=== PATIENT | female | born 1960 | race American Indian/Alaskan Native ===

== ENCOUNTER 2021-06-03 13:11 | Emergency (ER) | payer MEDICARE, MEDICAID ==
[2021-06-03 13:39] VITALS: BP 152/87
--- NOTE | 2021-06-03 15:27 | Emergency Department Report ---
ED General Adult HPI - General Chief complaint: Weakness Stated complaint: SENT BY CHEYENNE WITT(Ayla)ANKLE/ SEVERE PAIN Time Seen by Provider: 06/03/21 15:12 Source: patient Mode of arrival: Wheelchair Limitations: No Limitations - History of Present Illness Initial comments: Chief complaint: "I just hurt all of my body after dialysis." HPI: This is a 60-year-old female with history of end-stage renal disease on hemodialysis Monday osteoporosis, rheumatoid arthritis hypertension, DC who presents with pain all over her body since dialysis on yesterday. She denies fever, headache, chest pain, cough. She states that she has pain in her arms back legs. No concentration in joints. She injured her right lower extremity a month ago. She now has a cyst in the area. She did receive COVID-19 vaccine. She has received hemodialysis therapy since August last year. -: Gradual, days(s) (1 days) Location: back, left, right, upper extremity, lower extremity Severity scale (0 -10): 10 Consistency: constant Associated Symptoms: other (cyst on right leg) - Related Data Previous Rx's Medication Instructions Recorded Last Taken Type oxyCODONE /ACETAMINOPHEN [Percocet 1 tab PO Q6HR PRN #15 tablet 06/03/21 Unknown Rx 5/325] Allergies Allergy/AdvReac Type Severity Reaction Status Date / Time No Known Allergies Allergy Unverified 06/03/21 15:20 ED Review of Systems ROS: Stated complaint: SENT BY CHEYENNE WITT(Ayla)ANKLE/ SEVERE PAIN Other details as noted in HPI Comment: All other systems reviewed and negative Constitutional: denies: fever, malaise Respiratory: denies: cough, shortness of breath Cardiovascular: denies: chest pain Gastrointestinal: denies: abdominal pain, nausea, vomiting Musculoskeletal: myalgia ED Past Medical Hx - Past Medical History Previous Medical History?: Yes Hx Hypertension: Yes Hx Heart Attack/AMI: Yes Hx Diabetes: Yes Hx Renal Disease: Yes (HD M-W-F) Additional medical history: osteoporosis, RA - Surgical History Past Surgical History?: Yes - Social History Smoking Status: Never Smoker Substance Use Type: None - Medications Home Medications: Home Medications Medication Instructions Recorded Confirmed Last Taken Type oxyCODONE /ACETAMINOPHEN [Percocet 1 tab PO Q6HR PRN #15 tablet 06/03/21 Unknown Rx 5/325] ED Physical Exam - General Limitations: No Limitations General appearance: alert, in no apparent distress - Head Head exam: Present: atraumatic, normocephalic - Eye Eye exam: Present: normal appearance - ENT ENT exam: Present: mucous membranes moist - Neck Neck exam: Present: normal inspection, full ROM - Respiratory Respiratory exam: Present: normal lung sounds bilaterally. Absent: respiratory distress, wheezes, rales, rhonchi - Cardiovascular Cardiovascular Exam: Present: regular rate, normal rhythm, normal heart sounds. Absent: systolic murmur, diastolic murmur, rubs, gallop - GI/Abdominal GI/Abdominal exam: Present: soft, normal bowel sounds. Absent: distended, tenderness, guarding, rebound - Extremities Exam Extremities exam: Present: normal inspection - Neurological Exam Neurological exam: Present: alert, oriented X3 - Psychiatric Psychiatric exam: Present: normal affect, normal mood - Skin Skin exam: Present: warm, dry, intact, normal color. Absent: rash ED Course Vital Signs 06/03/21 06/03/21 06/03/21 13:34 15:09 16:14 Temperature 99.2 F Pulse Rate 91 H 88 Respiratory 20 18 18 Rate Blood Pressure 152/87 O2 Sat by Pulse 98 99 97 Oximetry ED Medical Decision Making - Lab Data Result diagrams: 06/03/21 15:58 06/03/21 15:58 - EKG Data -: EKG Interpreted by Md EKG shows normal: sinus rhythm, axis, intervals, QRS complexes, ST-T waves Rate: normal - EKG Data 06/03/21 15:26 EKG obtained 1321 EKG interpreted by nm Normal sinus rhythm rate 90 bpm normal axis prolonged QTC no ST elevation nonspecific T wave abnormality - Radiology Data Radiology results: report reviewed [facility] [address] [place] [address] XRay Report Signed Patient: KALEIGH THAYER MR#: [id number] : 1960 Acct:[id number] Age/Sex: 60 / F ADM Date: 06/03/21 Loc: ED Attending Dr: Ordering Physician: Nati Purcell MD Date of Service: 06/03/21 Procedure(s): XR tibia fibula 2V RT Accession Number(s): [id number] cc: Nati Purcell MD Fluoro Time In Minutes: RIGHT TIBIA AND FIBULA 2 VIEWS INDICATION: cyst on right leg. COMPARISON: None. IMPRESSION: No osseous abnormality is appreciated. Venous stasis disease is s uspected. There is mild soft tissue swelling anteriorly at the level of the mid [place]. Diffuse vascu lar calcifications. Signer Name: Alfonzo Cobos Jr, MD Signed: 06/03/2021 3:56 PM Workstation Name: [id number] Transcribed By: TTR Dictated By: ALFONZO COBOS JR, MD Electronically Authenticated By: ALFONZO COBOS JR, MD Signed Date/Time: 06/03/211555 DD/ 54 TD/TT: - Medical Decision Making 1. Diffuse body pain: Unclear if this is a flare of rheumatoid arthritis which is not likely considering the lack of localized joint involvement. Dialysis treatment and end-stage renal disease both can can be associated with generalized myalgia. CBC chemistry magnesium phosphorus all with normal limits. Only mild hypocalcemia detected 8.0. I suspect her pain is a symptom of chronic kidney disease and treatment therapy. 2. Right lower leg cyst: No evidence of fracture or neurovascular compromise. No indication of abscess. Patient given referral to orthopedic surgeon. Critical care attestation.: If time is entered above; I have spent that time in minutes in the direct care of this critically ill patient, excluding procedure time. ED Disposition Clinical Impression: Complications of end stage renal disease, Cyst, dermoid, leg Disposition: DC-01 TO HOME OR SELFCARE Is pt being admited?: No Does the pt Need Aspirin: No Condition: Stable Prescriptions: oxyCODONE /ACETAMINOPHEN [Percocet 5/325] 1 tab PO Q6HR PRN #15 tablet PRN Reason: Pain Referrals: RIANNA ESCUDERO MD [Staff Physician] - 3-5 Days
--- NOTE | 2021-06-03 16:00 | XRay Report ---
RIGHT TIBIA AND FIBULA 2 VIEWS INDICATION: cyst on right leg. COMPARISON: None. IMPRESSION: No osseous abnormality is appreciated. Venous stasis disease is suspected. There is mil d soft tissue swelling anteriorly at the level of the mid [place]. Diffuse vascular calcifications. Signer Name: Alfonzo Cobos Jr, MD Signed: 06/03/2021 3:56 PM Workstation Name: [id number]
[2021-06-03 16:17] LABS: Hematocrit 34.1 % (30.3-42.9); Hemoglobin 10.9 gm/dl (10.1-14.3); Mean Corpuscular HGB Conc 32 % (30-34); Mean Corpuscular Volume 84 fl (79-97); Platelet Count 199 K/mm3 (140-440); Red Blood Count 4.06 M/mm3 (3.65-5.03); Red Cell Distribution Width 20.3 % (13.2-15.2)
[2021-06-03] MEDS ORDERED: oxyCODONE /ACETAMINOPHEN 5-325MG TAB PO ONE (16:18)
[2021-06-03 17:34] LABS: Total Cells Counted 100
[2021-06-03 17:35] LABS: Anisocytosis 1+; Platelet Estimate Consistent w Auto
--- NOTE | 2021-06-04 14:07 | Electrocardiograph Report ---
[facility] Test Date: 2021-06-03 Test Time: 13:21:54 Pat Name: KALEIGH THAYER Department: Room: Gender: F Stock Clerk: BRIANNA : 1960 Requested By: SADI ABBOTT Order Number: [id number] Reading MD: Isaak Zuñiga Measurements Intervals [place] Rate: 91 P: 27 NV: 116 QRS: -11 QRSD: 82 T: 76 QT: 395 QTc: 486 Interpretive Statements Sinus rhythm Probable LVH with secondary repol abnrm No previous ECG available for comparison Electronically Signed On 06-04-2021 14:07:00 EDT by Isaak Zuñiga
== END 2021-06-03 17:30 | disposition home or self-care (01) ==
LOC: ED 13:11
DX: D36.7 Benign neoplasm of other specified sites (principal); E11.22 Type 2 diabetes mellitus with diabetic chronic kidney disease; I13.11 Hypertensive heart and chronic kidney disease without heart failure, with stage 5 chronic kidney disease, or end stage renal disease; N18.6 End stage renal disease; Z99.2 Dependence on renal dialysis; Z98.890 Other specified postprocedural states; Z79.899 Other long term (current) drug therapy
CPT/HCPCS: 36415; 80048; 83735; 84100; 85007; 85025; 93005

== ENCOUNTER 2021-06-09 09:31 | Inpatient (IN) | payer MEDICARE ==
[2021-06-09] MEDS ORDERED: ASPIRIN 325 MG TAB PO ONE (09:36)
--- NOTE | 2021-06-09 10:24 | XRay Report ---
XR chest 1V ap INDICATION / CLINICAL INFORMATION: CP/ SOB. COMPARISON: None available. FINDINGS: SUPPORT DEVICES: Internal jugular central venous access catheter terminates in the SVC. HEART / MEDIASTINUM: Mildly prominent cardiac silhouette. LUNGS / PLEURA: Peribronchial and interlobular septal thickening. No pneumothorax. Suspect small effu sions. ADDITIONAL FINDINGS: Advanced arthropathy of the shoulders IMPRESSION: 1. Cardiomegaly with interstitial edema and suspect small effusions. Signer Name: Gus Reed MD Signed: 06/09/2021 10:20 AM Workstation Name: [id number]
--- NOTE | 2021-06-09 10:37 | Electrocardiograph Report ---
[facility] Test Date: 2021-06-09 Test Time: 09:43:46 Pat Name: KALEIGH THAYER Department: Room: Gender: F Head Pastry Chef: BRIANNA : 1960 Requested By: ED DOC Order Number: [id number] Reading MD: Willis Ndiaye Measurements Intervals [place] Rate: 88 P: 37 MO: 123 QRS: 19 QRSD: 80 T: 64 QT: 418 QTc: 507 Interpretive Statements Sinus rhythm Compared to ECG 06/03/2021 13:21:54 No significant changes Electronically Signed On 06-09-2021 10:37:25 EDT by Willis Ndiaye
[2021-06-09] MEDS ORDERED: ONDANSETRON 4 MG/2 ML INJ IV ONE (11:16)
[2021-06-09] MEDS ORDERED: MORPHINE 4 MG/1 ML INJ IV ONE (11:16)
[2021-06-09] MEDS ORDERED: MORPHINE 4 MG/1 ML INJ IM ONE (11:27)
--- NOTE | 2021-06-09 11:46 | Emergency Department Report ---
ED General Adult HPI - General Chief complaint: Dyspnea/Respdistress Stated complaint: SOB/CP Time Seen by Provider: 06/09/21 10:59 Source: patient Mode of arrival: Wheelchair Limitations: No Limitations - History of Present Illness Initial comments: The patient presents to the emergency department the chief complaint of diffuse chest pain that started this morning. Patient states that she has sharp sensation throughout her whole chest. Patient was was go to dialysis this morning but did not go due to the chest pain. Patient also complains of mild shortness of breath. Patient denies abdominal pain or headache. -: Sudden Location: chest Severity scale (0 -10): 10 Quality: sharp Consistency: constant Improves with: none Worsens with: none Associated Symptoms: denies other symptoms Treatments Prior to Arrival: none - Related Data Previous Rx's Medication Instructions Recorded Last Taken Type oxyCODONE /ACETAMINOPHEN [Percocet 1 tab PO Q6HR PRN #15 tablet 06/03/21 Unknown Rx 5/325] Allergies Allergy/AdvReac Type Severity Reaction Status Date / Time No Known Allergies Allergy Verified 06/09/21 09:33 ED Review of Systems ROS: Stated complaint: SOB/CP Other details as noted in HPI Comment: All other systems reviewed and negative Constitutional: denies: chills, fever Eyes: denies: eye pain, eye discharge, vision change ENT: denies: ear pain, throat pain Respiratory: shortness of breath. denies: cough, wheezing Cardiovascular: chest pain. denies: palpitations Endocrine: no symptoms reported Gastrointestinal: denies: abdominal pain, nausea, diarrhea Genitourinary: denies: urgency, dysuria, discharge Musculoskeletal: denies: back pain, joint swelling, arthralgia Skin: denies: rash, lesions Neurological: denies: headache, weakness, paresthesias Psychiatric: denies: anxiety, depression Hematological/Lymphatic: denies: easy bleeding, easy bruising ED Past Medical Hx - Past Medical History Hx Hypertension: Yes Hx Heart Attack/AMI: Yes Hx Diabetes: Yes Hx Renal Disease: Yes (HD M-W-F) Additional medical history: osteoporosis, RA - Social History Smoking Status: Never Smoker Substance Use Type: None - Medications Home Medications: Home Medications Medication Instructions Recorded Confirmed Last Taken Type oxyCODONE /ACETAMINOPHEN [Percocet 1 tab PO Q6HR PRN #15 tablet 07/22/21 Unknown Rx 5/325] ED Physical Exam - General Limitations: No Limitations General appearance: alert, in no apparent distress - Head Head exam: Present: atraumatic, normocephalic - Eye Eye exam: Present: normal appearance - ENT ENT exam: Present: mucous membranes moist - Neck Neck exam: Present: normal inspection - Respiratory Respiratory exam: Present: normal lung sounds bilaterally. Absent: respiratory distress - Cardiovascular Cardiovascular Exam: Present: regular rate, normal rhythm. Absent: systolic murmur, diastolic murmur, rubs, gallop - GI/Abdominal GI/Abdominal exam: Present: soft, normal bowel sounds. Absent: distended, tenderness - Extremities Exam Extremities exam: Present: other ([place] deformities of the digits of the hand) - Back Exam Back exam: Present: normal inspection - Neurological Exam Neurological exam: Present: alert, oriented X3, CN II-XII intact. Absent: motor sensory deficit - Psychiatric Psychiatric exam: Present: normal affect, normal mood - Skin Skin exam: Present: warm, dry, intact, normal color. Absent: rash ED Course Vital Signs 06/09/21 06/09/21 06/09/21 09:35 11:14 12:00 Temperature 99.5 F Pulse Rate 88 77 105 H Respiratory 20 26 H 21 Rate Blood Pressure 175/91 182/91 O2 Sat by Pulse 98 98 Oximetry 06/09/21 06/09/21 06/09/21 13:34 14:00 15:00 Temperature Pulse Rate 107 H 104 H 100 H Respiratory 21 22 23 Rate Blood Pressure 184/91 171/84 149/78 O2 Sat by Pulse 95 96 96 Oximetry 06/09/21 16:00 Temperature Pulse Rate 103 H Respiratory 24 Rate Blood Pressure 169/82 O2 Sat by Pulse 96 Oximetry - Central Line Placement Right Femoral Consent Obtained: verbal consent Time Out Performed: Yes Patient Placed on Monitor/Pulse Ox: Yes MD Prep: mask, gown, gloves Central Line Prep: Chlorhexidine scrub Local Anesthesia Used: Lidocaine 1% Amount of Anesthesia Used (mls): 10 Ultrasound Used for Placement: Yes Central Line Lumen Inserted: triple Reason for Insertion: Emergency Venous Access Bloods Obtained for Lab: Yes Central Line Position: good blood return, all ports aspirated, flus, sutured in place with 3-0 Dressing Applied: Tegaderm Patient Tolerated Procedure: well Complications: none ED Medical Decision Making - Lab Data Result diagrams: 06/09/21 14:11 06/09/21 14:11 Lab Results 06/09/21 06/09/21 Range/Units 14:11 14:11 WBC 7.5 (4.5-11.0) K/mm3 RBC 3.62 L (3.65-5.03) M/mm3 Hgb 9.8 L (10.1-14.3) gm/dl Hct 29.8 L (30.3-42.9) % MCV 82 (79-97) fl MCH 27 L (28-32) pg MCHC 33 (30-34) % RDW 20.0 H (13.2-15.2) % Plt Count 187 (140-440) K/mm3 Add Manual Diff Complete Total Counted 100 Seg Neutrophils % Complaint Inspector Seg Neuts % (Manual) 98.0 H (40.0-70.0) % Lymphocytes % (Manual) 1.0 L (13.4-35.0) % Monocytes % (Manual) 1.0 (0.0-7.3) % Nucleated RBC % Not Reportable Seg Neutrophils # Man 7.4 (1.8-7.7) K/mm3 Band Neutrophils # 0.0 K/mm3 Lymphocytes # (Manual) 0.1 L (1.2-5.4) K/mm3 Abs React Lymphs (Man) 0.0 K/mm3 Monocytes # (Manual) 0.1 (0.0-0.8) K/mm3 Eosinophils # (Manual) 0.0 (0.0-0.4) K/mm3 Basophils # (Manual) 0.0 (0.0-0.1) K/mm3 Metamyelocytes # 0.0 K/mm3 Myelocytes # 0.0 K/mm3 Promyelocytes # 0.0 K/mm3 Blast Cells # 0.0 K/mm3 WBC Morphology Not Reportable Hypersegmented Neuts Not Reportable Hyposegmented Neuts Not Reportable Hypogranular Neuts Not Reportable Smudge Cells Not Reportable Toxic Granulation Not Reportable Toxic Vacuolation Not Reportable Dohle Bodies Not Reportable Pelger-Huet Anomaly Not Reportable Belinda Rods Not Reportable Platelet Estimate Consistent w auto Clumped Platelets Not Reportable Plt Clumps, EDTA Not Reportable Large Platelets Not Reportable Giant Platelets Not Reportable Platelet Satelliting Not Reportable Plt Morphology Comment Not Reportable RBC Morphology Not Reportable Dimorphic RBCs Not Reportable Polychromasia Not Reportable Hypochromasia Not Reportable Poikilocytosis Not Reportable Anisocytosis 1+ Microcytosis Not Reportable Macrocytosis Not Reportable Spherocytes Not Reportable Pappenheimer Bodies Not Reportable Sickle Cells Not Reportable Target Cells Not Reportable Tear Drop Cells Not Reportable Ovalocytes Not Reportable Helmet Cells Not Reportable Benítez-Okay Bodies Not Reportable [place] Rings Not Reportable Mallorie Cells Not Reportable Bite Cells Not Reportable Crenated Cell Not Reportable Elliptocytes Not Reportable Acanthocytes (Spur) Not Reportable Rouleaux Not Reportable Hemoglobin C Crystals Not Reportable Schistocytes Not Reportable Malaria parasites Not Reportable Clemente Bodies Not Reportable Hem Pathologist Commnt No Sodium 142 (137-145) mmol/L Potassium 3.6 (3.6-5.0) mmol/L Chloride 101.6 (98-107) mmol/L Carbon Dioxide 27 (22-30) mmol/L Anion Gap 17 mmol/L BUN 54 H (7-17) mg/dL Creatinine 3.6 H (0.6-1.2) mg/dL Estimated GFR 16 ml/min BUN/Creatinine Ratio 15 % Glucose 65 (65-100) mg/dL Calcium 8.5 (8.4-10.2) mg/dL Total Bilirubin 0.30 (0.1-1.2) mg/dL AST 13 (5-40) units/L ALT < 5 L (7-56) units/L Alkaline Phosphatase 27 L (35-129) units/L Troponin T 0.022 (0.00-0.029) ng/mL Total Protein 5.5 L (6.3-8.2) g/dL Albumin 3.2 L (3.9-5) g/dL Albumin/Globulin Ratio 1.4 % - EKG Data -: EKG Interpreted by Me EKG shows normal: sinus rhythm Rate: normal - Radiology Data Radiology results: report reviewed - Medical Decision Making Central line placed for venous access due to failed attempts of getting ultrasound-guided IV access as well as 's Critical care attestation.: If time is entered above; I have spent that time in minutes in the direct care of this critically ill patient, excluding procedure time. ED Disposition Clinical Impression: Chest pain Disposition: OP ADMIT IP TO THIS HOSP Is pt being admited?: Yes Does the pt Need Aspirin: Yes Condition: Stable Referrals: PRIMARY CARE,MD [Primary Care Provider] - 3-5 Days Heart Score - HEART Score History: Slightly suspicious EKG: Non-specific Age: 45-65 Risk factors: > 3 risk factors or hx of atherosclerotic disease Troponin: < normal limit HEART Score: 4 - EKG Read Time Time EKG Completed: 00:00 EKG Read Time: 00:00 - Critical Actions Critical Actions: 4-6 pts:12-16.6% risk of adverse cardiac event. Should be admitted
[2021-06-09] MEDS ORDERED: HYDROmorphone 1 MG/1 ML INJ IM ONE (12:11)
[2021-06-09] MEDS ORDERED: LIDOCAINE (1%) 10 MG/1 ML VIAL 20 ML MDV INFILTRATI ONE (13:56)
--- NOTE | 2021-06-09 14:34 | Nuclear Medicine Report ---
NUCLEAR MEDICINE PERFUSION SCAN INDICATION: sob/cp CORRELATION: AP chest performed earlier today RADIOPHARMACEUTICAL: Perfusion: 5.2 mCi Tc-99m MAA given IV FINDINGS: Perfusion images show symmetric and uniform radiotracer distribution throughout bilateral lung zones with no evidence of unmatched segmental perfusion defects. Mild enlargement of the cardiac silhouette is noted. IMPRESSION: Low probability perfusion scan for pulmonary embolism. Signer Name: Alfonzo Cobos Jr, MD Signed: 06/09/2021 2:30 PM Workstation Name: [id number]
[2021-06-09 14:53] LABS: Hematocrit 29.8 % (30.3-42.9); Hemoglobin 9.8 gm/dl (10.1-14.3); Mean Corpuscular HGB Conc 33 % (30-34); Mean Corpuscular Volume 82 fl (79-97); Platelet Count 187 K/mm3 (140-440); Red Blood Count 3.62 M/mm3 (3.65-5.03)
[2021-06-09 14:55] LABS: Albumin 3.2 g/dL (3.9-5); BUN/Creatinine Ratio 15; Blood Urea Nitrogen 54 mg/dL (7-17); Calcium 8.5 mg/dL (8.4-10.2); Hemolysis Index 7
[2021-06-09 14:58] LABS: Alanine Aminotransferase < 5 units/L (7-56)
[2021-06-09 16:22] LABS: Total Cells Counted 100
[2021-06-09] MEDS ORDERED: ASPIRIN 81 MG TAB CHEW PO ONE (16:22)
[2021-06-09 16:23] LABS: Anisocytosis 1+; Platelet Estimate Consistent w Auto
[2021-06-09] MEDS ORDERED: HYDROmorphone 1 MG/1 ML INJ IV ONE (18:31)
--- NOTE | 2021-06-09 22:02 | History and Physical Report ---
History of Present Illness Date of examination: 06/09/21 Date of admission: 06/09/21 16:22 Chief complaint: Chest pain for 2 days History of present illness: 60-year-old -Algerian male with history of hypertension diabetes coronary artery disease and end-stage renal disease presents with retrosternal chest pain since morning. Chest pain is about 6 7 out12t. No radiation. No diaphoresis. No shortness of breath. Patient was supposed to go for dialysis this morning but did not go due to her chest pain. No radiation of the chest pain. No exacerbating or relieving factors. Never had a stress test or cardiac cath. Patient is a poor historian. No exacerbating or relieving factors. No home medications for reconciliation - Past Medical History --Hypertension: Yes --Heart Attack/AMI: Yes --Diabetes: Yes --Renal Disease: Yes (HD -W-) --Additional medical history: osteoporosis, RA Surgical history AV fistula - Social History Smoking Status: Never Smoker Substance Use Type: None -Family history Htn - Medications Home Medications: Home Medications Medication Instructions Recorded Confirmed Last Taken Type oxyCODONE /ACETAMINOPHEN [Percocet 1 tab PO Q6HR PRN #15 tablet 06/03/21 Unknown Rx 5/325] Review of Systems ROS: Stated complaint: SOB/CP Other details as noted in HPI Comment: All other systems reviewed and negative Constitutional: denies: chills, fever Eyes: denies: eye pain, eye discharge, vision change ENT: denies: ear pain, throat pain Respiratory: shortness of breath. denies: cough, wheezing Cardiovascular: chest pain. denies: palpitations Endocrine: no symptoms reported Gastrointestinal: denies: abdominal pain, nausea, diarrhea Genitourinary: denies: urgency, dysuria, discharge Musculoskeletal: denies: back pain, joint swelling, arthralgia Skin: denies: rash, lesions Neurological: denies: headache, weakness, paresthesias Psychiatric: denies: anxiety, depression Hematological/Lymphatic: denies: easy bleeding, easy bruising Medications and Allergies Allergies Allergy/AdvReac Type Severity Reaction Status Date / Time No Known Allergies Allergy Verified 06/09/21 09:33 Home Medications Medication Instructions Recorded Confirmed Last Taken Type oxyCODONE /ACETAMINOPHEN [Percocet 1 tab PO Q6HR PRN #15 tablet 06/03/21 Unknown Rx 5/325] Exam - Constitutional Vitals: Temp Pulse Resp BP Pulse Ox 99.5 F 99 H 12 154/88 96 06/09/21 09:35 06/09/21 20:00 06/09/21 20:00 06/09/21 20:00 06/09/21 20:00 General appearance: Present: no acute distress, well-nourished - EENT Eyes: Present: PERRL ENT: hearing intact, clear oral mucosa - Neck Neck: Present: supple, normal ROM - Respiratory Respiratory effort: normal Respiratory: bilateral: CTA - Cardiovascular Heart rate: 78 Rhythm: regular Heart Sounds: Present: S1 & S2. Absent: rub, click - Extremities Extremities: no ischemia, pulses intact, pulses symmetrical, No edema Peripheral Pulses: within normal limits - Abdominal General gastrointestinal: Present: soft, non-tender, non-distended, normal bowel sounds Female genitourinary: Present: normal - Integumentary Integumentary: Present: clear, warm, dry - Musculoskeletal Musculoskeletal: gait normal, strength equal bilaterally - Psychiatric Psychiatric: appropriate mood/affect, intact judgment & insight - Neurologic Neurologic: CNII-XII intact, moves all extremities - Allied Health Allied health notes reviewed: nursing, case management HEART Score - HEART Score EKG: Non-specific Age: 45-65 Risk factors: > 3 risk factors or hx of atherosclerotic disease Troponin: Troponin T 0.016 ng/mL (0.00-0.029) 06/09/21 19:59 Troponin: < normal limit - Critical Actions Critical Actions: 4-6 pts:12-16.6% risk of adverse cardiac event. Should be admitted Results - Labs CBC & Chem 7: 06/09/21 14:11 06/09/21 14:11 Labs: Laboratory Last Values WBC 7.5 K/mm3 (4.5-11.0) 06/09/21 14:11 RBC 3.62 M/mm3 (3.65-5.03) L 06/09/21 14:11 Hgb 9.8 gm/dl (10.1-14.3) L 06/09/21 14:11 Hct 29.8 % (30.3-42.9) L 06/09/21 14:11 MCV 82 fl (79-97) 06/09/21 14:11 MCH 27 pg (28-32) L 06/09/21 14:11 MCHC 33 % (30-34) 06/09/21 14:11 RDW 20.0 % (13.2-15.2) H 06/09/21 14:11 Plt Count 187 K/mm3 (140-440) 06/09/21 14:11 Add Manual Diff Complete 06/09/21 14:11 Total Counted 100 06/09/21 14:11 Seg Neutrophils % [place] 06/09/21 14:11 Seg Neuts % (Manual) 98.0 % (40.0-70.0) H 06/09/21 14:11 Lymphocytes % (Manual) 1.0 % (13.4-35.0) L 06/09/21 14:11 Monocytes % (Manual) 1.0 % (0.0-7.3) 06/09/21 14:11 Nucleated RBC % Not Reportable 06/09/21 14:11 Seg Neutrophils # Man 7.4 K/mm3 (1.8-7.7) 06/09/21 14:11 Band Neutrophils # 0.0 K/mm3 06/09/21 14:11 Lymphocytes # (Manual) 0.1 K/mm3 (1.2-5.4) L 06/09/21 14:11 Abs React Lymphs (Man) 0.0 K/mm3 06/09/21 14:11 Monocytes # (Manual) 0.1 K/mm3 (0.0-0.8) 06/09/21 14:11 Eosinophils # (Manual) 0.0 K/mm3 (0.0-0.4) 06/09/21 14:11 Basophils # (Manual) 0.0 K/mm3 (0.0-0.1) 06/09/21 14:11 Metamyelocytes # 0.0 K/mm3 06/09/21 14:11 Myelocytes # 0.0 K/mm3 06/09/21 14:11 Promyelocytes # 0.0 K/mm3 06/09/21 14:11 Blast Cells # 0.0 K/mm3 06/09/21 14:11 WBC Morphology Not Reportable 06/09/21 14:11 Hypersegmented Neuts Not Reportable 06/09/21 14:11 Hyposegmented Neuts Not Reportable 06/09/21 14:11 Hypogranular Neuts Not Reportable 06/09/21 14:11 Smudge Cells Not Reportable 06/09/21 14:11 Toxic Granulation Not Reportable 06/09/21 14:11 Toxic Vacuolation Not Reportable 06/09/21 14:11 Dohle Bodies Not Reportable 06/09/21 14:11 Pelger-Huet Anomaly Not Reportable 06/09/21 14:11 Belinda Rods Not Reportable 06/09/21 14:11 Platelet Estimate Consistent w auto 06/09/21 14:11 Clumped Platelets Not Reportable 06/09/21 14:11 Plt Clumps, EDTA Not Reportable 06/09/21 14:11 Large Platelets Not Reportable 06/09/21 14:11 Giant Platelets Not Reportable 06/09/21 14:11 Platelet Satelliting Not Reportable 06/09/21 14:11 Plt Morphology Comment Not Reportable 06/09/21 14:11 RBC Morphology Not Reportable 06/09/21 14:11 Dimorphic RBCs Not Reportable 06/09/21 14:11 Polychromasia Not Reportable 06/09/21 14:11 Hypochromasia Not Reportable 06/09/21 14:11 Poikilocytosis Not Reportable 06/09/21 14:11 Anisocytosis 1+ 06/09/21 14:11 Microcytosis Not Reportable 06/09/21 14:11 Macrocytosis Not Reportable 06/09/21 14:11 Spherocytes Not Reportable 06/09/21 14:11 Pappenheimer Bodies Not Reportable 06/09/21 14:11 Sickle Cells Not Reportable 06/09/21 14:11 Target Cells Not Reportable 06/09/21 14:11 Tear Drop Cells Not Reportable 06/09/21 14:11 Ovalocytes Not Reportable 06/09/21 14:11 Helmet Cells Not Reportable 06/09/21 14:11 [place] Bodies Not Reportable 06/09/21 14:11 [place] Rings Not Reportable 06/09/21 14:11 [place] Cells Not Reportable 06/09/21 14:11 Bite Cells Not Reportable 06/09/21 14:11 Crenated Cell Not Reportable 06/09/21 14:11 Elliptocytes Not Reportable 06/09/21 14:11 Acanthocytes (Spur) Not Reportable 06/09/21 14:11 Rouleaux Not Reportable 06/09/21 14:11 Hemoglobin C Crystals Not Reportable 06/09/21 14:11 Schistocytes Not Reportable 06/09/21 14:11 Malaria parasites Not Reportable 06/09/21 14:11 Clement[place] Bodies Not Reportable 06/09/21 14:11 Hem Pathologist Commnt No 06/09/21 14:11 Sodium 142 mmol/L (137-145) 06/09/21 14:11 Potassium 3.6 mmol/L (3.6-5.0) 06/09/21 14:11 Chloride 101.6 mmol/L (98-107) 06/09/21 14:11 Carbon Dioxide 27 mmol/L (22-30) 06/09/21 14:11 Anion Gap 17 mmol/L 06/09/21 14:11 BUN 54 mg/dL (7-17) H 06/09/21 14:11 Creatinine 3.6 mg/dL (0.6-1.2) H 06/09/21 14:11 Estimated GFR 16 ml/min 06/09/21 14:11 BUN/Creatinine Ratio 15 % 06/09/21 14:11 Glucose 65 mg/dL (65-100) 06/09/21 14:11 Calcium 8.5 mg/dL (8.4-10.2) 06/09/21 14:11 Total Bilirubin 0.30 mg/dL (0.1-1.2) 06/09/21 14:11 AST 13 units/L (5-40) 06/09/21 14:11 ALT < 5 units/L (7-56) L 06/09/21 14:11 Alkaline Phosphatase 27 units/L (35-129) L 06/09/21 14:11 Troponin T 0.016 ng/mL (0.00-0.029) 06/09/21 19:59 Total Protein 5.5 g/dL (6.3-8.2) L 06/09/21 14:11 Albumin 3.2 g/dL (3.9-5) L 06/09/21 14:11 Albumin/Globulin Ratio 1.4 % 06/09/21 14:11 Short CBC 06/09/21 Range/Units 14:11 WBC 7.5 (4.5-11.0) K/mm3 Hgb 9.8 L (10.1-14.3) gm/dl Hct 29.8 L (30.3-42.9) % Plt Count 187 (140-440) K/mm3 BMP 06/09/21 14:11 Sodium 142 Potassium 3.6 Chloride 101.6 Carbon Dioxide 27 BUN 54 H Creatinine 3.6 H Glucose 65 Calcium 8.5 Cardiac Enzymes 06/09/21 06/09/21 06/09/21 Range/Units 14:11 19:59 23:58 Total Creatine Kinase 16 L (30-135) units/L CK-MB (CK-2) < 1.0 (0.0-4.0) ng/mL Troponin T 0.022 0.016 0.023 (0.00-0.029) ng/mL Liver Function 06/09/21 Range/Units 14:11 Total Bilirubin 0.30 (0.1-1.2) mg/dL AST 13 (5-40) units/L ALT < 5 L (7-56) units/L Alkaline Phosphatase 27 L (35-129) units/L Albumin 3.2 L (3.9-5) g/dL - Imaging and Cardiology EKG: report reviewed (Sinus rhythm no acute ST-T wave changes) Chest x-ray: report reviewed Imaging and Cardiology: Pulmonary perfusion imaging Low probability perfusion scan for pulmonary embolism Chest x-ray Cardiomegaly with interstitial edema and suspect small effusions sinus rhythm no acute ST-T wave changes Assessment and Plan Advance Directives: Yes (Full code) Plan of care discussed with patient/family: Yes - Patient Problems (1) Acute coronary syndrome Current Visit: Yes Status: Acute Plan to address problem: Serial troponins, CPK with MB. Lexiscan in the morning (2) Hypertension Current Visit: Yes Status: Chronic Qualifiers: Hypertension type: primary hypertension Qualified Code(s): I10 - Essential (primary) hypertension Plan to address problem: Patient initiated on valsartan 160 mg once a day (3) End-stage renal disease needing dialysis Current Visit: Yes Status: Chronic Plan to address problem: Patient is on Monday schedule Nephrology consulted--- Dr. Brenton Laguna (4) Anemia Current Visit: Yes Status: Chronic Qualifiers: Anemia type: due to chronic kidney disease Plan to address problem: Anemia secondary to chronic kidney disease On Epogen (5) Malnutrition Current Visit: Yes Status: Acute Qualifiers: Protein-calorie malnutrition severity: mild Plan to address problem: Albumin of 3.2 Initiated on dietary supplements (6) DVT prophylaxis Current Visit: Yes Status: Acute Plan to address problem: On heparin and GI prophylaxis
[2021-06-09] MEDS ORDERED: ONDANSETRON 4 MG/2 ML INJ IV PRN (22:06)
[2021-06-09] MEDS ORDERED: METOCLOPRAMIDE 10 MG/2 ML INJ IV PRN (22:06)
[2021-06-09] MEDS ORDERED: SODIUM CHLORIDE 0.45% 1000 ML 1,000 ML IV SCH (23:00)
[2021-06-09] MEDS: hydrALAZINE 20 MG/1 ML INJ IV PRN (23:10)
[2021-06-09] MEDS: HYDROmorphone 1 MG/1 ML INJ IV PRN (23:11)
[2021-06-09] MEDS: ACETAMINOPHEN 325 MG TAB PO PRN (23:15)
[2021-06-09] MEDS ORDERED: cefTRIAXone/NS 1 GM/50 ML 1 GM/50 ML BAG IV ONE (23:15)
[2021-06-09] MEDS: HEPARIN 5,000 UNIT/1 ML VIAL SUB-Q SCH (23:18)
[2021-06-09] MEDS: FAMOTIDINE 20 MG/2 ML INJ IV SCH (23:24)
[2021-06-10 01:11] LABS: Creatine Kinase MB < 1.0 ng/mL (0.0-4.0)
[2021-06-10] MEDS ORDERED: LORazepam 2 MG/ML VIAL IV ONE (01:51)
[2021-06-10] MEDS: HYDROmorphone 1 MG/1 ML INJ IV PRN (04:29)
[2021-06-10 06:39] LABS: Basophils % (Auto) 0.2 % (0.0-1.8); Eosinophils # (Auto) 0.1 K/mm3 (0.0-0.4); Eosinophils % (Auto) 2.7 % (0.0-4.3); Hemoglobin 9.1 gm/dl (10.1-14.3); Lymphocytes # (Auto) 0.5 K/mm3 (1.2-5.4); Lymphocytes % (Auto) 8.8 % (13.4-35.0); Mean Corpuscular HGB Conc 32 % (30-34); Mean Corpuscular Volume 83 fl (79-97); Monocytes # (Auto) 0.3 K/mm3 (0.0-0.8); Monocytes % (Auto) 5.2 % (0.0-7.3); Platelet Count 211 K/mm3 (140-440); Red Blood Count 3.48 M/mm3 (3.65-5.03)
[2021-06-10 06:40] LABS: Red Cell Distribution Width 20.3 % (13.2-15.2)
[2021-06-10 06:56] LABS: Albumin 3.1 g/dL (3.9-5); Calcium 7.5 mg/dL (8.4-10.2)
[2021-06-10 07:20] LABS: Creatine Kinase MB < 1.0 ng/mL (0.0-4.0)
[2021-06-10] MEDS: INSULIN LISPRO 100 UNIT/ML SUB-Q SCH ×4 (09:12→22:03)
[2021-06-10] MEDS: ACETAMINOPHEN 325 MG TAB PO PRN (09:27)
[2021-06-10] MEDS: FAMOTIDINE 20 MG/2 ML INJ IV SCH (09:27)
[2021-06-10] MEDS: HEPARIN 5,000 UNIT/1 ML VIAL SUB-Q SCH ×2 (09:28→22:02)
[2021-06-10] MEDS: VALSARTAN 160MG TAB PO SCH (09:28)
--- NOTE | 2021-06-10 09:29 | Consultation ---
History of Present Illness - Reason for Consult Consult date: 06/10/21 end stage renal disease - History of Present Illness patient with ESRD on HD, missed his treatment yesterday due to worsening chest pain and presented to the ER. CXR showed pulm congestion, VQ scan -ve for PE. he was evaluated by cardiology and is scheduled for stress tomorrow. Renal consult was requested for HD management while inpatient Past History Past Medical History: ESRD, hypertension Medications and Allergies Allergies Allergy/AdvReac Type Severity Reaction Status Date / Time No Known Allergies Allergy Verified 06/09/21 09:33 Home Medications Medication Instructions Recorded Confirmed Last Taken Type oxyCODONE /ACETAMINOPHEN [Percocet 1 tab PO Q6HR PRN #15 tablet 06/03/21 Unkno wn Rx 5/325] Active Meds: Active Medications Acetaminophen (Acetaminophen 325 Mg Tab) 650 mg PO Q4H PRN PRN Reason: Pain MILD(1-3)/Fever >100.5/[place] Last Admin: 06/09/21 23:15 Dose: 650 mg Documented by: Famotidine (Famotidine 20 Mg/2 Ml Inj) [facility] [place] [place] Admin: 06/09/21 23:24 Dose: 20 mg Documented by: Heparin Sodium (Porcine) (Heparin 5,000 Unit/1 Ml Vial) 5,000 unit SUB-Q Q12HR [facility] Last Admin: 06/09/21 23:18 Dose: 5,000 unit Documented by: Hydralazine HCl (Hydralazine 20 Mg/1 Ml Inj) 10 mg IV Q6H PRN PRN Reason: SBP > 160 Last Admin: 06/09/21 23:10 Dose: 10 mg Documented by: Hydromorphone HCl (Hydromorphone 1 Mg/1 Ml Inj) 0.5 mg IV Q3H PRN PRN Reason: Pain , Severe (7-10) Last Admin: 06/10/21 04:29 Dose: 0.5 mg Documented by: Insulin Human Lispro (Insulin Lispro 100 Unit/Ml) 0 unit SUB-Q [facility]; Protocol Last Admin: 06/10/21 09:12 Dose: Not Given Documented by: Metoclopramide HCl (Metoclopramide 10 Mg/2 Ml Inj) 5 mg IV Q6H PRN PRN Reason: Nausea And Vomiting Ondansetron HCl (Ondansetron 4 Mg/2 Ml Inj) 4 mg IV Q8H PRN PRN Reason: Nausea And Vomiting Oxycodone/Acetaminophen (Oxycodone /Acetaminophen 5-325mg Tab) 1 tab PO Q6H PRN PRN Reason: Pain, Moderate (4-6) Sodium Chloride (Sodium Chloride 0.9% 10 Ml Flush Syringe) 10 ml IV BID MADIE Sodium Chloride (Sodium Chloride 0.9% 10 Ml Flush Syringe) 10 ml IV PRN PRN PRN Reason: LINE FLUSH Valsartan (Valsartan 160mg Tab) 160 mg PO DAILY MADIE Review of Systems All systems: negative (chest pain) Exam - Vital Signs Vital signs: Vital Signs Temp Pulse Resp BP Pulse Ox 99.5 F 88 20 175/91 98 06/09/21 09:35 06/09/21 09:35 06/09/21 09:35 06/09/21 09:35 06/09/21 09:35 - General Appearance General appearance: well-developed, well-nourished EENT: ATNC, PERRL, mucous membranes moist Neck: Present: neck supple Respiratory: Clear to Ascultation Heart: regular, S1S2 Gastrointestinal: Present: normoactive bowel sounds. Absent: absent bowel sounds, tenderness, masses Integumentary: no rash, warm and dry Neurologic: no focal deficit, no asterixis Musculoskeletal: Present: other (no edema in BLE) Psychiatric: mood/affect appropriate, cooperative Results - Lab Results 06/10/21 05:41 06/10/21 05:41 Most recent lab results Calcium 7.5 mg/dL (8.4-10.2) L 06/10/21 05:41 Assessment and Plan (1) Acute coronary syndrome (2) Hypertension (3) End-stage renal disease needing dialysis (4) Anemia (5) Malnutrition HD today for clearance and volume remova will assess dialysis needs daily, likely another tx tomorrow Renally dose meds strict I&O daily weight
[2021-06-10 11:19] LABS: Creatine Kinase MB < 1.0 ng/mL (0.0-4.0)
[2021-06-10] MEDS: oxyCODONE /ACETAMINOPHEN 5-325MG TAB PO PRN ×2 (14:51→22:04)
--- NOTE | 2021-06-10 15:41 | Progress Note ---
Assessment and Plan Assessment and plan: (1) Acute coronary syndrome Current Visit: Yes Status: Acute Plan to address problem: Serial troponins- Negative. CKMB likely slightly elevated due to ESRD Lexiscan in the morning, was canceled today due to NM lung scan completed on admission (2) Hypertension Current Visit: Yes Status: Chronic Qualifiers: Hypertension type: primary hypertension Qualified Code(s): I10 - Essential (primary) hypertension Plan to address problem: Patient initiated on valsartan 160 mg once a day (3) End-stage renal disease needing dialysis Current Visit: Yes Status: Chronic Plan to address problem: Patient is on Monday schedule HD today for clearance and volume removal will assess dialysis needs daily, likely another tx tomorrow per nephro note Renally dose meds strict I&O daily weight Nephrology consulted --- Dr. Brenton Laguna (4) Anemia Current Visit: Yes Status: Chronic Qualifiers: Anemia type: due to chronic kidney disease Plan to address problem: Anemia secondary to chronic kidney disease On Epogen (5) Malnutrition Current Visit: Yes Status: Acute Qualifiers: Protein-calorie malnutrition severity: mild Plan to address problem: Albumin of 3.2 Initiated on dietary supplements (6) DVT prophylaxis Current Visit: Yes Status: Acute Plan to address problem: On heparin and GI prophylaxis History Interval history: Patient states that she is depressed about having to undergo dialysis. She denied any active chest pain or pain in general. Her was present at bedside during afternoon encounter. He states that she has had trouble adjusting to dialysis and that patient is tired of taking multiple medications. She has had trouble coping with the dialysis treatment sessions. Both the patient and her kept insisting that the patient needed a kidney transplant however I discussed with them that kidney transplantation as a strict criteria in our facility is not transplant capable. I recommended they continue to address any concerns they have in regards to this with their outpatient stitching machine operator. Patient will undergo hemodialysis treatment today this afternoon. Hospitalist Physical - Physical exam Narrative exam: General appearance: well-developed, well-nourished EENT: ATNC, PERRL, mucous membranes moist Neck: Present: neck supple Respiratory: Clear to Ascultation Heart: regular, S1S2 Gastrointestinal: Present: normoactive bowel sounds. Absent: absent bowel sounds, tenderness, masses Integumentary: no rash, warm and dry Neurologic: no focal deficit, no asterixis Musculoskeletal: Present: other (no edema in BLE) Psychiatric: mood/affect appropriate, cooperative - Constitutional Vitals: Temp Pulse Resp BP Pulse Ox 98.0 F 108 H 18 156/86 96 06/10/21 12:14 06/10/21 12:14 06/10/21 12:14 06/10/21 12:14 06/10/21 13:00 General appearance: Present: no acute distress, well-nourished HEART Score - HEART Score EKG: Non-specific Age: 45-65 Risk factors: > 3 risk factors or hx of atherosclerotic disease Troponin: Troponin T 0.025 ng/mL (0.00-0.029) 06/10/21 05:41 Troponin: < normal limit - Critical Actions Critical Actions: 4-6 pts:12-16.6% risk of adverse cardiac event. Should be admitted Results - Labs CBC & Chem 7: 06/10/21 05:41 06/10/21 05:41 Labs: Laboratory Last Values WBC 5.3 K/mm3 (4.5-11.0) 06/10/21 05:41 RBC 3.48 M/mm3 (3.65-5.03) L 06/10/21 05:41 Hgb 9.1 gm/dl (10.1-14.3) L 06/10/21 05:41 Hct 29.0 % (30.3-42.9) L 06/10/21 05:41 MCV 83 fl (79-97) 06/10/21 05:41 MCH 26 pg (28-32) L 06/10/21 05:41 MCHC 32 % (30-34) 06/10/21 05:41 RDW 20.3 % (13.2-15.2) H 06/10/21 05:41 Plt Count 211 K/mm3 (140-440) 06/10/21 05:41 Lymph % (Auto) 8.8 % (13.4-35.0) L 06/10/21 05:41 [place] % (Auto) 5.2 % (0.0-7.3) 06/10/21 05:41 Eos % (Auto) 2.7 % (0.0-4.3) 06/10/21 05:41 Baso % (Auto) 0.2 % (0.0-1.8) 06/10/21 05:41 Lymph # (Auto) 0.5 K/mm3 (1.2-5.4) L 06/10/21 05:41 [place] # (Auto) 0.3 K/mm3 (0.0-0.8) 06/10/21 05:41 Eos # (Auto) 0.1 K/mm3 (0.0-0.4) 06/10/21 05:41 Baso # (Auto) 0.0 K/mm3 (0.0-0.1) 06/10/21 05:41 Add Manual Diff Complete 06/09/21 14:11 Total Counted 100 06/09/21 14:11 Seg Neutrophils % 83.1 % (40.0-70.0) H 06/10/21 05:41 Seg Neuts % (Manual) 98.0 % (40.0-70.0) H 06/09/21 14:11 Lymphocytes % (Manual) 1.0 % (13.4-35.0) L 06/09/21 14:11 Monocytes % (Manual) 1.0 % (0.0-7.3) 06/09/21 14:11 Nucleated RBC % Not Reportable 06/09/21 14:11 Seg Neutrophils # 4.4 K/mm3 (1.8-7.7) 06/10/21 05:41 Seg Neutrophils # Man 7.4 K/mm3 (1.8-7.7) 06/09/21 14:11 Band Neutrophils # 0.0 K/mm3 06/09/21 14:11 Lymphocytes # (Manual) 0.1 K/mm3 (1.2-5.4) L 06/09/21 14:11 Abs React Lymphs (Man) 0.0 K/mm3 06/09/21 14:11 Monocytes # (Manual) 0.1 K/mm3 (0.0-0.8) 06/09/21 14:11 Eosinophils # (Manual) 0.0 K/mm3 (0.0-0.4) 06/09/21 14:11 Basophils # (Manual) 0.0 K/mm3 (0.0-0.1) 06/09/21 14:11 Metamyelocytes # 0.0 K/mm3 06/09/21 14:11 Myelocytes # 0.0 K/mm3 06/09/21 14:11 Promyelocytes # 0.0 K/mm3 06/09/21 14:11 Blast Cells # 0.0 K/mm3 06/09/21 14:11 WBC Morphology Not Reportable 06/09/21 14:11 Hypersegmented Neuts Not Reportable 06/09/21 14:11 Hyposegmented Neuts Not Reportable 06/09/21 14:11 Hypogranular Neuts Not Reportable 06/09/21 14:11 Smudge Cells Not Reportable 06/09/21 14:11 Toxic Granulation Not Reportable 06/09/21 14:11 Toxic Vacuolation Not Reportable 06/09/21 14:11 Dohle Bodies Not Reportable 06/09/21 14:11 Pelger-Huet Anomaly Not Reportable 06/09/21 14:11 Belinda Rods Not Reportable 06/09/21 14:11 Platelet Estimate Consistent w auto 06/09/21 14:11 Clumped Platelets Not Reportable 06/09/21 14:11 Plt Clumps, EDTA Not Reportable 06/09/21 14:11 Large Platelets Not Reportable 06/09/21 14:11 Giant Platelets Not Reportable 06/09/21 14:11 Platelet Satelliting Not Reportable 06/09/21 14:11 Plt Morphology Comment Not Reportable 06/09/21 14:11 RBC Morphology Not Reportable 06/09/21 14:11 Dimorphic RBCs Not Reportable 06/09/21 14:11 Polychromasia Not Reportable 06/09/21 14:11 Hypochromasia Not Reportable 06/09/21 14:11 Poikilocytosis Not Reportable 06/09/21 14:11 Anisocytosis 1+ 06/09/21 14:11 Microcytosis Not Reportable 06/09/21 14:11 Macrocytosis Not Reportable 06/09/21 14:11 Spherocytes Not Reportable 06/09/21 14:11 Pappenheimer Bodies Not Reportable 06/09/21 14:11 Sickle Cells Not Reportable 06/09/21 14:11 Target Cells Not Reportable 06/09/21 14:11 Tear Drop Cells Not Reportable 06/09/21 14:11 Ovalocytes Not Reportable 06/09/21 14:11 Helmet Cells Not Reportable 06/09/21 14:11 [place] Bodies Not Reportable 06/09/21 14:11 [place] Rings Not Reportable 06/09/21 14:11 [place] Cells Not Reportable 06/09/21 14:11 Bite Cells Not Reportable 06/09/21 14:11 Crenated Cell Not Reportable 06/09/21 14:11 Elliptocytes Not Reportable 06/09/21 14:11 Acanthocytes (Spur) Not Reportable 06/09/21 14:11 Rouleaux Not Reportable 06/09/21 14:11 Hemoglobin C Crystals Not Reportable 06/09/21 14:11 Schistocytes Not Reportable 06/09/21 14:11 Malaria parasites Not Reportable 06/09/21 14:11 [place] Bodies Not Reportable 06/09/21 14:11 Hem Pathologist Commnt No 06/09/21 14:11 Sodium 142 mmol/L (137-145) 06/10/21 05:41 Potassium 3.7 mmol/L (3.6-5.0) 06/10/21 05:41 Chloride 104.4 mmol/L (98-107) 06/10/21 05:41 Carbon Dioxide 23 mmol/L (22-30) 06/10/21 05:41 Anion Gap 18 mmol/L 06/10/21 05:41 BUN 59 mg/dL (7-17) H 06/10/21 05:41 Creatinine 4.4 mg/dL (0.6-1.2) H 06/10/21 05:41 Estimated GFR 12 ml/min 06/10/21 05:41 BUN/Creatinine Ratio 13 % 06/10/21 05:41 Glucose 68 mg/dL (65-100) 06/10/21 05:41 POC Glucose 108 mg/dL (70-105) H 06/10/21 11:43 Hemoglobin A1c 4.7 % (4-6) 06/10/21 05:41 Calcium 7.5 mg/dL (8.4-10.2) L 06/10/21 05:41 Total Bilirubin 0.20 mg/dL (0.1-1.2) 06/10/21 05:41 AST 12 units/L (5-40) 06/10/21 05:41 ALT 8 units/L (7-56) 06/10/21 05:41 Alkaline Phosphatase 31 units/L (35-129) L 06/10/21 05:41 Total Creatine Kinase 20 units/L (30-135) L 06/10/21 10:38 CK-MB (CK-2) < 1.0 ng/mL (0.0-4.0) 06/10/21 10:38 CK-MB (CK-2) Rel Index 5.0 (0-4) H 06/10/21 10:38 Troponin T 0.025 ng/mL (0.00-0.029) 06/10/21 05:41 Total Protein 5.0 g/dL (6.3-8.2) L 06/10/21 05:41 Albumin 3.1 g/dL (3.9-5) L 06/10/21 05:41 Albumin/Globulin Ratio 1.6 % 06/10/21 05:41 Microbiology: Microbiology 06/09/21 23:55 Peripheral/Venous Blood Culture - Preliminary Culture in Progress 06/10/21 00:58 Peripheral/Venous Blood Culture - Preliminary Culture in Progress Fung/IV: Voiding Method External Female Catheter Active Medications - Current Medications Current Medications: Generic Name Dose Route Start Last Admin Trade Name Freq PRN Reason Stop Dose Admin Acetaminophen 650 mg 06/09/21 22:06 06/10/21 09:27 Acetaminophen 325 Mg Tab PO 650 mg Q4H PRN Administration Pain MILD(1-3)/Fever >100.5/[place] Famotidine 20 mg 06/09/21 23:00 06/10/21 09:27 Famotidine 20 Mg/2 Ml Inj IV 20 mg QAM MADIE Administration Heparin Sodium (Porcine) 5,000 unit 06/09/21 22:15 06/10/21 09:28 Heparin 5,000 Unit/1 Ml Vial SUB-Q 5,000 unit Q12HR MADIE Administration Hydralazine HCl 10 mg 06/09/21 22:39 06/09/21 23:10 Hydralazine 20 Mg/1 Ml Inj IV 10 mg Q6H PRN Administration SBP > 160 Hydromorphone HCl 0.5 mg 06/09/21 22:06 06/10/21 04:29 Hydromorphone 1 Mg/1 Ml Inj IV 0.5 mg Q3H PRN Administration Pain , Severe (7-10) Insulin Human Lispro 0 unit 06/10/21 07:30 06/10/21 12:25 Insulin Lispro 100 Unit/Ml SUB-Q Not Given ACHS MADIE Protocol Metoclopramide HCl 5 mg 06/09/21 22:06 Metoclopramide 10 Mg/2 Ml Inj IV Q6H PRN Nausea And Vomiting Ondansetron HCl 4 mg 06/09/21 22:06 Ondansetron 4 Mg/2 Ml Inj IV Q8H PRN Nausea And Vomiting Oxycodone/Acetaminophen 1 tab 06/09/21 22:06 06/10/21 14:51 Oxycodone /Acetaminophen 5-325mg Tab PO 1 tab Q6H PRN Administration Pain, Moderate (4-6) Sodium Chloride 10 ml 06/10/21 10:00 06/10/21 09:29 Sodium Chloride 0.9% 10 Ml Flush Syringe IV 10 ml BID MADIE Administration Sodium Chloride 10 ml 06/09/21 22:06 Sodium Chloride 0.9% 10 Ml Flush Syringe IV PRN PRN LINE FLUSH Valsartan 160 mg 06/10/21 10:00 06/10/21 09:28 Valsartan 160mg Tab PO 160 mg DAILY MADIE Administration
[2021-06-10] MEDS ORDERED: DULOXETINE HCL 30 MG PO SCH (15:45)
[2021-06-10] MEDS: carvediloL 25 MG TAB PO SCH ×2 (16:29→22:02)
[2021-06-10] MEDS: ASPIRIN 81 MG TAB CHEW PO SCH (16:29)
[2021-06-10] MEDS: TORSEMIDE 10 MG TAB PO SCH (16:30)
[2021-06-10] MEDS: GABAPENTIN 300 MG CAP PO SCH ×2 (16:30→22:01)
[2021-06-10] MEDS: SODIUM BICARBONATE 650 MG TAB PO SCH ×2 (16:30→22:00)
[2021-06-10] MEDS: DULoxetine 30 MG CAP PO SCH (16:30)
[2021-06-10 17:54] LABS: Hepatitis B Surface Antigen Non-Reactive (Negative); Hepatitis C Virus Antibody Non-Reactive (NonReactive)
[2021-06-10] MEDS ORDERED: TIZANIDINE HCL 2 MG PO SCH (20:00)
[2021-06-10] MEDS ORDERED: amLODIPine 10 MG TAB PO SCH (22:00)
[2021-06-10] MEDS: tiZANidine TAB 4 MG TAB PO SCH (22:00)
[2021-06-10] MEDS ORDERED: predniSONE 10 MG TAB PO SCH (22:00)
[2021-06-11] MEDS: GABAPENTIN 300 MG CAP PO SCH ×2 (05:50→15:00)
[2021-06-11 05:53] LABS: Basophils % (Auto) 0.2 % (0.0-1.8); Eosinophils % (Auto) 0.4 % (0.0-4.3); Hematocrit 30.7 % (30.3-42.9); Hemoglobin 9.9 gm/dl (10.1-14.3); Lymphocytes # (Auto) 0.5 K/mm3 (1.2-5.4); Mean Corpuscular HGB Conc 32 % (30-34); Mean Corpuscular Volume 83 fl (79-97); Monocytes # (Auto) 0.1 K/mm3 (0.0-0.8); Monocytes % (Auto) 2.6 % (0.0-7.3); Platelet Count 204 K/mm3 (140-440); Red Cell Distribution Width 19.9 % (13.2-15.2)
[2021-06-11 06:17] LABS: Albumin 3.1 g/dL (3.9-5); Calcium 8.1 mg/dL (8.4-10.2)
[2021-06-11] MEDS: hydrALAZINE 20 MG/1 ML INJ IV PRN (06:29)
[2021-06-11] MEDS ORDERED: REGADENOSON 0.4 MG/5 ML INJ IV ONE (07:06)
[2021-06-11] MEDS: INSULIN LISPRO 100 UNIT/ML SUB-Q SCH ×2 (08:10→14:40)
[2021-06-11] MEDS: HEPARIN 5,000 UNIT/1 ML VIAL SUB-Q SCH (10:19)
[2021-06-11] MEDS: SODIUM BICARBONATE 650 MG TAB PO SCH (10:19)
--- NOTE | 2021-06-11 11:34 | Progress Note ---
Assessment and Plan (1) Acute coronary syndrome (2) Hypertension (3) End-stage renal disease needing dialysis (4) Anemia (5) Malnutrition no indication for HD today will assess dialysis needs daily, likely another tx tomorrow Renally dose meds strict I&O daily weight Subjective Date of service: 06/11/21 Principal diagnosis: ESRD on HD Interval history: tolerated HD yesterday Objective - Vital Signs Vital signs: Vital Signs - 12hr 06/11/21 06/11/21 06/11/21 01:00 04:43 06:29 Temperature 97.3 F L Pulse Rate 95 H 93 H Respiratory 18 Rate Blood Pressure 168/90 168/90 O2 Sat by Pulse 96 98 Oximetry 06/11/21 06/11/21 06/11/21 07:46 08:36 09:07 Temperature 98.5 F Pulse Rate 98 H Respiratory 20 Rate Blood Pressure 148/72 170/89 O2 Sat by Pulse 97 96 Oximetry 06/11/21 06/11/21 06/11/21 09:09 09:34 09:35 Temperature Pulse Rate Respiratory Rate Blood Pressure 172/95 158/86 157/89 O2 Sat by Pulse Oximetry 06/11/21 06/11/21 09:36 09:38 Temperature Pulse Rate Respiratory Rate Blood Pressure 160/87 145/83 O2 Sat by Pulse Oximetry - Lab 06/11/21 05:14 06/11/21 05:14 Most recent lab results Calcium 8.1 mg/dL (8.4-10.2) L 06/11/21 05:14 Medications & Allergies - Medications Allergies/Adverse Reactions: Allergies No Known Allergies Allergy (Verified 06/09/21 09:33) Home Medications: Home Medications Medication Instructions Recorded Confirmed Last Taken Type Aspirin [Aspirin BABY CHEW TAB] 81 mg PO QDAY 06/10/21 06/10/21 Unknown History AtorvaSTATin [Lipitor] 20 mg PO HS 06/10/21 06/10/21 Unknown History Duloxetine HCl [Drizalma Sprinkle] 30 mg PO DAILY 06/10/21 06/10/21 Unknown History Gabapentin [Neurontin] 300 mg PO Q8HR 06/10/21 06/10/21 Unknown History Losartan [Cozaar] 25 mg PO DAILY 06/10/21 06/10/21 Unknown History Montelukast Sodium 10 mg PO HS 06/10/21 06/10/21 Unknown History Ondansetron [Zuplenz] 4 mg PO Q8H PRN 06/10/21 06/10/21 Unknown History Promethazine [Phenergan] 25 mg PO Q6HR PRN 06/10/21 06/10/21 Unknown History Sodium Bicarbonate 650 mg PO BID 06/10/21 06/10/21 Unknown History Sucralfate [Carafate] 1 gm PO TID 06/10/21 06/10/21 Unknown History Tizanidine HCl 2 mg PO TID 06/10/21 06/10/21 Unknown History Torsemide [Demadex] 5 mg PO QDAY 06/10/21 06/10/21 Unknown History amLODIPine 10 mg PO HS 06/10/21 06/10/21 Unknown History carvediloL [Coreg] 25 mg PO BID 06/10/21 06/10/21 Unknown History clonazePAM [KlonoPIN] 2 mg PO BID 06/10/21 06/10/21 Unknown History hydrOXYzine HCL [Atarax] 25 mg PO TID 06/10/21 06/10/21 Unknown History predniSONE 10 mg PO HS 06/10/21 06/10/21 Unknown History Active Medications: Generic Name Dose Route Start Last Admin Trade Name Freq PRN Reason Stop Dose Admin Acetaminophen 650 mg 06/09/21 22:06 06/10/21 09:27 Acetaminophen 325 Mg Tab PO 650 mg Q4H PRN Administration Pain MILD(1-3)/Fever >100.5/[place] Amlodipine Besylate 10 mg 06/10/21 22:00 06/10/21 22:02 Amlodipine 10 Mg Tab PO 10 mg HS MADIE Administration Aspirin 81 mg 06/10/21 16:00 06/10/21 16:29 Aspirin 81 Mg Tab Chew PO Not Given QDAY MADIE Atorvastatin Calcium 20 mg 06/10/21 22:00 06/10/21 22:01 Atorvastatin 20 Mg Tab PO 20 mg HS MADIE Administration Carvedilol 25 mg 06/10/21 16:00 06/10/21 22:02 Carvedilol 25 Mg Tab PO 25 mg BID MADIE Administration Duloxetine HCl 30 mg 06/10/21 16:30 06/10/21 16:30 Duloxetine 30 Mg Cap PO Not Given QDAY MADIE Famotidine 20 mg 06/09/21 23:00 06/10/21 09:27 Famotidine 20 Mg/2 Ml Inj IV 20 mg QAM MADIE Administration Gabapentin 300 mg 06/10/21 16:00 06/11/21 05:50 Gabapentin 300 Mg Cap PO Not Given Q8HR MADIE Heparin Sodium (Porcine) 5,000 unit 06/09/21 22:15 06/11/21 10:19 Heparin 5,000 Unit/1 Ml Vial SUB-Q Not Given Q12HR MADIE Hydralazine HCl 10 mg 06/09/21 22:39 06/11/21 06:29 Hydralazine 20 Mg/1 Ml Inj IV 10 mg Q6H PRN Administration SBP > 160 Hydromorphone HCl 0.5 mg 06/09/21 22:06 06/10/21 04:29 Hydromorphone 1 Mg/1 Ml Inj IV 0.5 mg Q3H PRN Administration Pain , Severe (7-10) Insulin Human Lispro 0 unit 06/10/21 07:30 06/11/21 08:10 Insulin Lispro 100 Unit/Ml SUB-Q Not Given ACHS [facility] Protocol Metoclopramide HCl 5 mg 06/09/21 22:06 Metoclopramide 10 Mg/2 Ml Inj IV Q6H PRN Nausea And Vomiting Ondansetron HCl 4 mg 06/09/21 22:06 Ondansetron 4 Mg/2 Ml Inj IV Q8H PRN Nausea And Vomiting Oxycodone/Acetaminophen 1 tab 06/09/21 22:06 06/10/21 22:04 Oxycodone /Acetaminophen 5-325mg Tab PO 1 tab Q6H PRN Administration Pain, Moderate (4-6) Prednisone 10 mg 06/10/21 22:00 06/10/21 22:01 Prednisone 10 Mg Tab PO 10 mg HS MADIE Administration Sodium Bicarbonate 650 mg 06/10/21 16:00 06/11/21 10:19 Sodium Bicarbonate 650 Mg Tab PO Not Given BID MADIE Sodium Chloride 10 ml 06/10/21 10:00 06/11/21 10:19 Sodium Chloride 0.9% 10 Ml Flush Syringe IV Not Given BID MADIE Sodium Chloride 10 ml 06/09/21 22:06 06/11/21 06:29 Sodium Chloride 0.9% 10 Ml Flush Syringe IV 10 ml PRN PRN Administration LINE FLUSH Tizanidine HCl 2 mg 06/10/21 20:00 06/10/21 22:00 Tizanidine Tab 4 Mg Tab PO 2 mg TID MADIE Administration Torsemide 5 mg 06/10/21 16:00 06/10/21 16:30 Torsemide 10 Mg Tab PO Not Given QDAY MADIE Valsartan 160 mg 06/10/21 10:00 06/10/21 09:28 Valsartan 160mg Tab PO 160 mg DAILY MADIE Administration
[2021-06-11] MEDS: tiZANidine TAB 4 MG TAB PO SCH ×2 (14:40→15:00)
[2021-06-11] MEDS: TORSEMIDE 10 MG TAB PO SCH (15:00)
[2021-06-11] MEDS: VALSARTAN 160MG TAB PO SCH (15:00)
[2021-06-11] MEDS: carvediloL 25 MG TAB PO SCH (15:00)
[2021-06-11] MEDS: DULoxetine 30 MG CAP PO SCH (15:00)
[2021-06-11] MEDS: ASPIRIN 81 MG TAB CHEW PO SCH (15:00)
[2021-06-11] MEDS: FAMOTIDINE 20 MG/2 ML INJ IV SCH (15:01)
--- NOTE | 2021-06-11 15:36 | Discharge Summary ---
Providers - Providers Date of Admission: 06/10/21 16:16 Date of discharge: 06/11/21 Attending physician: MINNA FLORIAN MD 06/09/21 22:14 Consult to Physician [CONS] Routine Comment: Consulting Provider: ROSALEE HUMPHREY Physician Instructions: Reason For Exam: LEIF/CKD Primary care physician: CONTRACT DESIGN AGENT Hospitalization Reason for admission: Chest pain Condition: Fair Hospital course: History of present illness: 60-year-old -[place] male with history of hypertension diabetes coronary artery disease and end-stage renal disease presents with retrosternal chest pain since morning. Chest pain is about 6 7 out12t. No radiation. No diaphoresis. No shortness of breath. Patient was supposed to go for dialysis this morning but did not go due to her chest pain. No radiation of the chest pain. No exacerbating or relieving factors. Never had a stress test or cardiac cath. Patient is a poor historian. No exacerbating or relieving factors. No home medications for reconciliation (1) Acute coronary syndrome Current Visit: Yes Status: Acute Plan to address problem: Serial troponins- Negative. CKMB likely slightly elevated due to ESRD Lexiscan in the morning, was canceled today due to NM lung scan completed on admission Lexiscan on 06/11/2021 - per cardiology (2) Hypertension Current Visit: Yes Status: Chronic Qualifiers: Hypertension type: primary hypertension Qualified Code(s): I10 - Essential (primary) hypertension Plan to address problem: Patient initiated on valsartan 160 mg once a day (3) End-stage renal disease needing dialysis Current Visit: Yes Status: Chronic Plan to address problem: Patient is on Monday schedule HD today for clearance and volume removal will assess dialysis needs daily, likely another tx tomorrow per nephro note Renally dose meds strict I&O daily weight Nephrology consulted. HD treatment 06/10 and 06/11 (4) Anemia Current Visit: Yes Status: Chronic Qualifiers: Anemia type: due to chronic kidney disease Plan to address problem: Anemia secondary to chronic kidney disease On Epogen (5) Malnutrition Current Visit: Yes Status: Acute Qualifiers: Protein-calorie malnutrition severity: mild Plan to address problem: Albumin of 3.2 Initiated on dietary supplements (6) DVT prophylaxis Current Visit: Yes Status: Acute Plan to address problem: On heparin and GI prophylaxis History Interval history: 06/11: Patient underwent nuclear med stress test. Stress test was negative for ischemia per cardiology. She also underwent hemodialysis this hospitalization on 06/10 and 06/11. Discussed with nephrology patient can follow-up outpatient. 06/10 patient states that she is depressed about having to undergo dialysis. She denied any active chest pain or pain in general. Her was present at bedside during afternoon encounter. He states that she has had trouble adjusting to dialysis and that patient is tired of taking multiple medications. She has had trouble coping with the dialysis treatment sessions. Both the patient and her kept insisting that the patient needed a kidney transplant however I discussed with them that kidney transplantation as a strict criteria in our facility is not transplant capable. I recommended they continue to address any concerns they have in regards to this with their outpatient account manager [id number]. Patient will undergo hemodialysis treatment today this afternoon. Hospital course Disposition: TO HOME OR SELFCARE Final Discharge Diagnosis (Prints w/discharge instructions): Chest pain Time spent for discharge: 35 Core Measure Documentation - Palliative Care Palliative Care/ Comfort Measures: Not Applicable - Core Measures Any of the following diagnoses?: none Exam - Physical Exam Narrative exam: General appearance: well-developed, well-nourished EENT: ATNC, PERRL, mucous membranes moist Neck: Present: neck supple Respiratory: Clear to Ascultation Heart: regular, S1S2 Gastrointestinal: Present: normoactive bowel sounds. Absent: absent bowel sounds, tenderness, masses Integumentary: no rash, warm and dry Neurologic: no focal deficit, no asterixis Musculoskeletal: Present: other (no edema in BLE) Psychiatric: mood/affect appropriate, cooperative - Constitutional Vitals: Temp Pulse Resp BP Pulse Ox 98.2 F 77 20 157/89 98 06/11/21 14:00 06/11/21 14:00 06/11/21 14:00 06/11/21 14:00 06/11/21 14:00 Plan Activity: no restrictions Weight Bearing Status: Full Weight Bearing Diet: renal Follow up with: PRIMARY CAREMD [Primary Care Provider] - 3-5 Days
[2021-06-11] MEDS: oxyCODONE /ACETAMINOPHEN 5-325MG TAB PO PRN (15:52)
[2021-06-11 15:56] VITALS: BP 125/74
--- NOTE | 2021-06-11 17:45 | Electrocardiograph Report ---
[facility] Test Date: 2021-06-10 Test Time: 07:31:36 Pat Name: KALEIGH THAYER Department: Room: A484 1 Gender: F Tree Cutter: BERNARDO : 1960 Requested By: LINDSEY WEAVER Order Number: [id number] Reading MD: Willis Ndiaye Measurements Intervals Gordon Rate: 105 P: 33 NV: 147 QRS: 15 QRSD: 81 T: 79 QT: 365 QTc: 483 Interpretive Statements Sinus tachycardia Probable left atrial enlargement Compared to ECG 06/09/2021 09:43:46 rate is faster. Electronically Signed On 06-11-2021 17:45:26 EDT by Willis Ndiaye
== END 2021-06-11 17:55 | disposition home or self-care (01) | DRG 311 ==
LOC: ED 09:31 → 4A 16:22 → OBSVTOIN 06-10 16:16
PROVIDERS: ADMIT Internal Medicine; ATTEND Internal Medicine
PROC: 5A1D70Z Performance of Urinary Filtration, Intermittent, Less than 6 Hours Per Day (ICD-10-PCS; principal; 2021-06-09)
PROC: 5A1D70Z Performance of Urinary Filtration, Intermittent, Less than 6 Hours Per Day (ICD-10-PCS; 2021-06-10)
DX: I24.9 Acute ischemic heart disease, unspecified (principal); N18.6 End stage renal disease; E44.1 Mild protein-calorie malnutrition; I12.0 Hypertensive chronic kidney disease with stage 5 chronic kidney disease or end stage renal disease; E44.0 Moderate protein-calorie malnutrition; D63.1 Anemia in chronic kidney disease; M06.9 Rheumatoid arthritis, unspecified; M81.0 Age-related osteoporosis without current pathological fracture; E11.22 Type 2 diabetes mellitus with diabetic chronic kidney disease; I25.10 Atherosclerotic heart disease of native coronary artery without angina pectoris; Z79.899 Other long term (current) drug therapy; Z68.28 Body mass index [BMI] 28.0-28.9, adult; Z99.2 Dependence on renal dialysis; Z79.891 Long term (current) use of opiate analgesic; Z79.01 Long term (current) use of anticoagulants; Z82.49 Family history of ischemic heart disease and other diseases of the circulatory system
CPT/HCPCS: 36415; 71045; 78452; 78580; 80053; 80074; 82550; 82553; 82962; 83036; 84484; 85007; 85025; 87040; 93005; 93017; 96372; 96374; G0378; A9270-GY; A9502; A9540; J0360; J0696; J1170; J1644; J2060; J2270; J2785; J7512